=== PATIENT | male | born 1955 | race Native Hawaiian/Other Pacific Islander ===

== ENCOUNTER 2022-11-10 03:08 | Emergency (ER) | payer OTHER ==
[~2022-11-10] VITALS: Ht 180.3 cm; Wt 49.9 kg
[2022-11-10 03:08] VITALS: TEMP 98.8
[2022-11-10 04:55] LABS: PLATELET COUNT 194 K/uL (142-355)
[2022-11-10 05:22] LABS: POTASSIUM 3.8 mmol/L (3.6-5.2)
[2022-11-10 06:23] VITALS: BP 148/81
== END 2022-11-10 07:45 | disposition short-term general hospital (02) ==
LOC: ED 03:08
PROVIDERS: Family Medicine
DX: J34.9 Unspecified disorder of nose and nasal sinuses (principal); N39.0 Urinary tract infection, site not specified; R41.82 Altered mental status, unspecified; Z02.79 Encounter for issue of other medical certificate
CPT/HCPCS: 36415; 80053; 80143; 80179; 80307; 80320; 81000; 82948; 85027; 87070; 87077; 87086; 87088; 87186; 87205; 87635; 93005; 96361; 96365; 99285; J0696; Q9963; U0003